=== PATIENT | female | born 1965 | race Caucasian/White ===

== ENCOUNTER 2021-05-03 21:47 | Emergency (ER) | payer OTHER ==
[~2021-05-03] VITALS: Ht 157.4 cm; Wt 51.7 kg
[2021-05-03 21:53] VITALS: BP 136/74
== END 2021-05-04 00:02 | disposition home or self-care (01) ==
LOC: ED 21:47
DX: S62.632A Displaced fracture of distal phalanx of right middle finger, initial encounter for closed fracture (principal); W20.8XXA Other cause of strike by thrown, projected or falling object, initial encounter; Y93.89 Activity, other specified; Y92.89 Other specified places as the place of occurrence of the external cause; Y99.8 Other external cause status

== ENCOUNTER 2023-03-01 14:18 | Emergency (ER) | payer OTHER ==
[~2023-03-01] VITALS: Ht 157.4 cm; Wt 50.8 kg
[2023-03-01 14:36] VITALS: BP 126/78
[2023-03-01] MEDS ORDERED: SEPTDS PO (16:29)
[2023-03-01] MEDS ORDERED: CEPHALEXIN500 M1 PO (16:29)
[2023-03-01 16:39] LABS: BASO % 0.2 % (0.0-1.0); EOS # 0.2 10*3/uL (0.0-0.4); EOS % 1.1 % (1.0-4.0); HEMATOCRIT 38.8 % (37.0-47.0); LYMPH # 2.1 10*3/uL (1.3-4.4); LYMPH % 11.6 % (27.0-41.0); MEAN CORPUSCULAR HGB 30.7 pg (27.0-31.0); MEAN PLATELET VOLUME 8.9 fl (9.6-12.3); MONO # 0.8 10*3/uL (0.1-1.0); MONO % 4.6 % (3.0-9.0); NEUT # 15.1 10*3/uL (2.3-7.9); NEUT % 82.2 % (47.0-73.0); PLATELET COUNT AUTOMATED 340 10*3/uL (130-400); RED BLOOD COUNT 4.17 10*6/uL (4.10-5.10); RED CELL DISTRI WIDTH 13.9 % (0-14.5); WHITE BLOOD COUNT 18.4 10*3/uL (4.8-10.8)
[2023-03-01 17:02] LABS: ALKALINE PHOSPHATASE 71 U/L (46-116); BUN 14 mg/dl (9-23); CHLORIDE 106 mmol/L (98-107); POTASSIUM 3.4 mmol/L (3.4-5.1); SGPT/ALT < 7 U/L (10-49); TOTAL PROTEIN 6.5 gm/dL (6.0-8.0)
== END 2023-03-01 17:29 | disposition home or self-care (01) ==
LOC: ED 14:18
PROVIDERS: Emergency Medicine
DX: L03.114 Cellulitis of left upper limb (principal); I10 Essential (primary) hypertension; F17.290 Nicotine dependence, other tobacco product, uncomplicated